=== PATIENT | female | born 1970 | race Caucasian/White ===

== ENCOUNTER 2022-04-18 13:35 | Emergency (ER) | payer BC ==
[2022-04-18 13:50] VITALS: BP 114/80; PULSE 96
[2022-04-18] MEDS ORDERED: Sodium Chloride 0.9% 10 ML Syringe FLUSH PRN (14:04)
[2022-04-18] MEDS ORDERED: Ondansetron 4 MG/2 ML SDV IVPUSH ONE (14:26)
[2022-04-18 14:46] LABS: ESTIMATED GFR 60 mL/min (>60)
== END 2022-04-18 16:29 | disposition home or self-care (01) ==
LOC: JD.ED 13:35
DX: R47.9 Unspecified speech disturbances (principal)
CPT/HCPCS: 36415; 70450; 71045; 80053; 81001; 83735; 84484; 85025; 86140; 87086; 87088; 87186; 93005; 99285; J3490

== ENCOUNTER 2025-06-01 08:37 | Emergency (ER) | payer BC ==
[2025-06-01 10:25] LABS: BASOPHILS ABSOLUTE AUTO 0.0 K/mm3 (0.0-0.2); BASOPHILS PERCENT AUTO 0.3 % (0.0-1.0); EOSINOPHILS ABSOLUTE AUTO 0.1 K/mm3 (0.0-0.4); EOSINOPHILS PERCENT AUTO 1.3 % (0.0-6.0); IMMATURE GRAN ABSOLUTE AUTO 0.03 K/mm3 (0.00-0.05); IMMATURE GRAN PERCENT AUTO 0.4 % (0.0-0.4); LYMPHOCYTES ABSOLUTE AUTO 0.3 K/mm3 (1.0-4.8); LYMPHOCYTES PERCENT AUTO 4.3 % (24.0-44.0); MEAN PLATELET VOLUME 8.6 fl (9.4-12.3); MONOCYTES ABSOLUTE AUTO 0.2 K/mm3 (0.0-0.8); MONOCYTES PERCENT AUTO 2.8 % (0.0-8.0); NEUTROPHILS ABSOLUTE AUTO 6.5 K/mm3 (1.8-7.7); NEUTROPHILS PERCENT AUTO 90.9 % (41.0-71.0); NRBC ABSOLUTE 0.00 (0.00-0.02); NRBC PERCENT 0.0 % (0.0-0.2); PLATELET COUNT,PLT 193 K/mm3 (150-400); RED BLOOD CELL COUNT 4.36 M/mm3 (4.10-5.30); WHITE BLOOD CELL COUNT,WBC 7.17 K/mm3 (3.9-11.3)
[2025-06-01 10:54] LABS: A/G RATIO 1.5 (1-2); ALANINE AMINOTRANSFERASE,ALT 13.0 U/L (14-59); ASPARTATE AMNIOTRANSFERASE,AST 9.0 U/L (15-37); BILIRUBIN TOTAL 1.7 mg/dL (0.2-1.0); BLOOD UREA NITROGEN,BUN 27.0 mg/dL (7-18); CARBON DIOXIDE,CO2 26.0 mEq/L (21-32); CHLORIDE,CL 105.0 mEq/L (98-107); CREATININE 0.8 mg/dL (0.55-1.02); EST CRCL DRUG DOSING (CG) 68.61 mL/min; ESTIMATED GFR 87.0 mL/min (>60); GLUCOSE RANDOM 93.0 mg/dL (70-99); POTASSIUM,K 4.4 mEq/L (3.5-5.1); PROTEIN TOTAL,TP 6.0 g/dl (6.4-8.2); SODIUM,NA 137.0 mEq/L (136-145); TSH 1.521 uIU/mL (0.358-3.74)
[2025-06-01 13:53] VITALS: BP 104/74; PULSE 74
== END 2025-06-01 13:28 | disposition home or self-care (01) ==
LOC: JD.ED 08:37
DX: G93.89 Other specified disorders of brain (principal); J45.909 Unspecified asthma, uncomplicated; Z79.899 Other long term (current) drug therapy; Z90.89 Acquired absence of other organs
CPT/HCPCS: 36415; 70551; 70551-26; 80053; 83690; 84443; 85025; 99285